=== PATIENT | female | born 1925 | race Native Hawaiian/Other Pacific Islander ===

== ENCOUNTER 2016-06-27 07:58 | Outpatient (CLI) | payer OTHER ==
[~2016-06-27 07:58] MED LIST: ALLO100T22 PO; ASA LOW STR81 MG PO; ASPIRIN325 M1 PO; ATROVENT HFA17 MCG IN; CEPH500C20 PO; FLUC150T PO; HYDR25CA25 PO; LEVO0.0218 PO; LOVASTATIN40 MG PO; MECL25TA84 PO; METF500T PO; NYST100010 EX; NYST100016 TOP; PANT40TA PO; TRIA0.1C5 EX; TRIA37.541 PO
[2016-06-27 08:54] LABS: POTASSIUM 3.5 mmol/L (3.6-5.2)
[2016-06-27 09:05] LABS: PLATELET COUNT 211 K/uL (152-353)
== END 2016-06-27 19:10 | disposition home or self-care (01) ==
LOC: LABW 07:58
PROVIDERS: Internal Medicine
DX: E11.9 Type 2 diabetes mellitus without complications (principal)
CPT/HCPCS: 36415; 80053; 80061; 81000; 82043; 82570; 83036; 84439; 84443; 85027

== ENCOUNTER 2017-04-05 10:46 | Outpatient (CLI) | payer OTHER ==
[2017-04-05 11:21] LABS: POTASSIUM 4.3 mmol/L (3.6-5.2)
[2017-04-05 11:24] LABS: PLATELET COUNT 240 K/uL (152-353)
== END 2017-04-06 05:19 | disposition home or self-care (01) ==
LOC: LABW 10:46
PROVIDERS: Internal Medicine
DX: L50.8 Other urticaria (principal)
CPT/HCPCS: 36415; 80053; 81000; 85027

== ENCOUNTER 2017-09-13 07:43 | Observation (INO) | payer OTHER ==
[~2017-09-13] VITALS: Ht 152.4 cm; Wt 51.9 kg
[~2017-09-13 07:43] MED LIST changes: -CLOP75TA2 PO; -ISOSORB MONO10 MG PO; -NITR0.4S2 SL
[2017-09-13 07:54] VITALS: BP 161/61; TEMP 98.2
[2017-09-13 08:29] LABS: PLATELET COUNT 236 K/uL (152-353)
[2017-09-13 08:38] LABS: POTASSIUM 3.9 mmol/L (3.6-5.2)
[2017-09-13 08:47] LABS: PARTIAL THROMBOPLASTIN TIME 23.4 SECONDS (24.5-33.6)
[2017-09-13 11:29] VITALS: BP 136/55; TEMP 98; Ht 152.4 cm; Wt 51.9 kg
[2017-09-13 12:00] VITALS: BP 136/55; TEMP 98
[2017-09-13 16:00] VITALS: BP 191/66; TEMP 98.6
--- NOTE | 2017-09-13 17:51 | NUR ---
2ND SET OF CE'S CALLED TO DR. MARTÍNEZ AT THIS TIME. NO NEW ORDERS GIVEN.
[2017-09-13 20:00] VITALS: BP 169/60; TEMP 98.2
[2017-09-14] VITALS: BP 124/40; TEMP 98.4
[2017-09-14 04:00] VITALS: BP 126/47; TEMP 97.5
[2017-09-14 05:11] LABS: PLATELET COUNT 212 K/uL (152-353)
[2017-09-14 05:42] LABS: POTASSIUM 3.4 mmol/L (3.6-5.2)
[2017-09-14 08:00] VITALS: BP 110/50; TEMP 97.5
[2017-09-14] MEDS ORDERED: ISOSORB MONO10 MG PO (10:35)
[2017-09-14] MEDS ORDERED: CLOP75TA2 PO (10:36)
[2017-09-14] MEDS ORDERED: NITR0.4S2 SL (10:38)
--- NOTE | 2017-09-14 11:50 | NUR ---
@ 8029 DR MARTÍNEZ IN TO SEE PATIENT, DISCUSSED TREATMENT OPTIONS WITH PATIENT AND FAMILY MEMBER, PT CHOSE TO TREAT HEART PROBLEMS WITH MEDICATIONS, AND TO FOLLOW UP WITH DR MARTÍNEZ IN 1-2 WEEKS IN CASE FURTHER HEART STUDIES ARE NECESSARY. PT BEING DISCHARGED HOME
--- NOTE | 2017-09-14 11:52 | NUR ---
@1104 PATIENT DISCHARGED TO HOME WITH FAMILY MEMBER, VIA PRIVATE CAR, PT TAKEN OUT BY WHEELCHAIR ACCOMPANIED BY SUPERVISOR FURNACE ROOM (RN). NO C/O VOICED, NAD NOTED
== END 2017-09-14 11:05 | disposition home or self-care (01) ==
LOC: ED 07:43 → MED/SURG 09:15
PROVIDERS: Internal Medicine
DX: R07.89 Other chest pain (principal); N39.0 Urinary tract infection, site not specified; D64.89 Other specified anemias; J44.9 Chronic obstructive pulmonary disease, unspecified; E11.9 Type 2 diabetes mellitus without complications
CPT/HCPCS: 36415; 80053; 81000; 82550; 82553; 84484; 85027; 85610; 85730; 87086; 87088; 93005; 99220; 99284; G0378; J1650

== ENCOUNTER → 2017-09-13 | Outpatient (CLI) | payer OTHER ==
[~2017-09-13] MED LIST changes: +CLOP75TA2 PO; +ISOSORB MONO10 MG PO; +NITR0.4S2 SL
== END | disposition short-term general hospital (02) ==
LOC: AMB 07:17
DX: R07.89 Other chest pain (principal); R06.02 Shortness of breath; R53.1 Weakness
CPT/HCPCS: A0425; A0427

== ENCOUNTER 2017-10-12 03:27 | Outpatient (CLI) | payer OTHER ==
[~2017-10-12 03:27] MED LIST changes: +CLOP75TA2 PO; +ISOSORB MONO10 MG PO; +NITR0.4S2 SL
== END 2017-10-12 03:37 | disposition short-term general hospital (02) ==
LOC: AMB 03:27
DX: R10.31 Right lower quadrant pain (principal)
CPT/HCPCS: A0425; A0427